=== PATIENT | female | born 2005 | race Caucasian/White ===

== ENCOUNTER 2024-05-02 09:06 | Emergency (ER) | payer OTHER ==
[~2024-05-02] VITALS: Ht 162.6 cm; Wt 60.0 kg
[2024-05-02] MEDS ORDERED: SODIUM CHLORIDE 0.9% 1,000 ML IV ONE (09:30)
[2024-05-02] MEDS ORDERED: ondansetron HCL 4 MG/2 ML VIAL IV ONE (09:30)
[2024-05-02 09:38] LABS: EOSINOPHILS 0.5 % (0-6); HEMATOCRIT 38.7 % (35.0-50.0); HEMOGLOBIN 13.3 g/dL (12.0-18.0); LYMPHOCYTES 1.4 % (24-44); MCH 30.7 (27-36); MCHC 34.4 g/dl (30-36); MONOCYTES 2.9 % (0-12); NEUTROPHILS 95.2 % (39-80); PLATELET COUNT 256 K/uL (140-440); RBC 4.35 M/ul (4.3-5.7); RDW 13.4 (10.5-15.0)
[2024-05-02 09:40] LABS: ALBUMIN/GLOBULIN RATIO 1.25 (1.1-2.4); ANION GAP 12.5 (7-21); BILIRUBIN, TOTAL 1.1 ng/dL (0.2-1.0); BUN/CREATININE RATIO 21.42 (6.0-28.6); CALCIUM 9.3 mg/dL (8.5-10.1); CREATININE, SERUM 0.7 mg/dL (0.55-1.02); POTASSIUM 3.5 mmol/L (3.5-5.1); PROTEIN, TOTAL 7.2 g/dL (6.4-8.2)
[2024-05-02] MEDS ORDERED: ONDANSETRON ODT8 MG PO (10:35)
[2024-05-02 10:42] VITALS: BP 97/58
== END 2024-05-02 10:42 | disposition home or self-care (01) ==
LOC: ED 09:06
PROVIDERS: Emergency Medicine
DX: R11.10 Vomiting, unspecified (principal); R19.7 Diarrhea, unspecified; R10.9 Unspecified abdominal pain
CPT/HCPCS: 36415; 80053; 83690; 84703; 85025; 96361; 96374; 99284-25; J2405; J7030